=== PATIENT | female | born 1945 | race Caucasian/White ===

== ENCOUNTER → 2017-05-07 | Outpatient (CLI) | payer MEDICARE, OTHER | END | disposition home or self-care (01) | LOC: CDC 10:10 | DX: Z01.810 Encounter for preprocedural cardiovascular examination (principal); M65.341 Trigger finger, right ring finger; M79.641 Pain in right hand; M19.041 Primary osteoarthritis, right hand; I49.3 Ventricular premature depolarization | CPT/HCPCS: 93000 ==